=== PATIENT | female | born 1945 | race Caucasian/White ===

== ENCOUNTER 2022-02-04 02:14 | Emergency (ER) | payer MEDICARE ==
[2022-02-04] MEDS ORDERED: fentaNYL 100 MCG/2 ML SDV IVPUSH ONE (03:40)
== END 2022-02-04 04:28 | disposition home or self-care (01) ==
LOC: DL.ED 02:14
DX: S52.592A Other fractures of lower end of left radius, initial encounter for closed fracture (principal); S52.692A Other fracture of lower end of left ulna, initial encounter for closed fracture; F17.210 Nicotine dependence, cigarettes, uncomplicated; Z88.0 Allergy status to penicillin; W18.30XA Fall on same level, unspecified, initial encounter
CPT/HCPCS: 29125; 73100; 96374; 99283; J3010